=== PATIENT | male | born 1935 | race Caucasian/White ===

== ENCOUNTER 2025-02-26 09:01 | Inpatient (IN) | payer BC ==
[2025-02-20 10:17] LABS: BASOPHILS % (AUTO) 0.4 % (0-1); EOSINOPHILS % (AUTO) 0.2 % (0-6); LYMPHOCYTES # (AUTO) 0.9 X10'3 (1.1-4.8); LYMPHOCYTES % (AUTO) 19.9 % (21-51); MEAN CORPUSCULAR HEMOGLOBIN 32.2 PG (27.0-31.0); MEAN CORPUSCULAR VOLUME 97.4 FL (78-98); MEAN PLATELET VOLUME 8.9 FL (7.4-10.4); MONOCYTES # (AUTO) 0.3 X10'3 (0-0.9); MONOCYTES % (AUTO) 6.3 % (2-12); NEUTROPHILS # (AUTO) 3.4 X10'3 (1.8-7.7); NEUTROPHILS % (AUTO) 73.2 % (42-75); PRE OP HEMATOCRIT 45.1 % (42.0-52.0); PRE OP HEMOGLOBIN 14.9 g/dL (14.0-17.9); PRE OP PLATELET COUNT 181 X10'3 (140-440); PRE OP WHITE BLOOD COUNT 4.7 10'3 (4.8-10.8); RED BLOOD COUNT 4.63 X10'6 (4.70-6.10); RED CELL DISTRIBUTION WIDTH 14.2 % (11.5-14.5)
[2025-02-20 10:24] LABS: BILIRUBIN,URINE NEGATIVE (Neg); CLARITY,URINE CLEAR (Clear); COLOR,URINE YELLOW (Yellow); GLUCOSE, URINE NEGATIVE (Neg); KETONES,URINE 15 mg/dl (Neg); LEUKOCYTE ESTERASE ,URINE NEGATIVE (Neg); NITRITES, URINE NEGATIVE (Neg); OCCULT BLOOD,URINE MODERATE (Neg); PROTEIN,URINE NEGATIVE (Neg); UROBILINOGEN,URINE 0.2 E.U/dL (0.2-1.0)
[2025-02-20 10:27] LABS: PRE OP INR 1.1 INR; PRE OP PROTIME 11.1 SECONDS (9.0-12.0); UA COLLECTION TYPE NON-SPECIFIED
[2025-02-20 10:33] LABS: ALBUMIN 4.2 G/DL (3.4-5.0); ALBUMIN/GLOBULIN RATIO 1.3 (1.1-1.5); ALKALINE PHOSPHATASE 105 IU/L (46-116); BLOOD UREA NITROGEN 17 MG/DL (7-18); BUN/CREATININE RATIO 19.5 (10.0-20.0); CALCIUM 9.3 MG/DL (8.5-10.1); CHLORIDE 102 MMOL/L (99-107); CREATININE 0.87 MG/DL (0.60-1.10); PRE OP ALT 30 U/L (30-65); PRE OP ANION GAP 9 (8-16); PRE OP AST 26 U/L (10-37); PRE OP BILIRUB, TOTAL 1.8 MG/DL (0.0-1.0); PRE OP GLUCOSE 102 MG/DL (70-104); PRE OP POTASSIUM 3.9 MMOL/L (3.4-5.1); PRE OP SODIUM 137 MMOL/L (135-145); TOTAL CARBON DIOXIDE 25.7 MMOL/L (24-32); TOTAL PROTEIN 7.4 G/DL (6.4-8.2); eGFR 83 ML/MIN
[2025-02-20 10:34] LABS: BACTERIA,URINE NONE SEEN /HPF (Neg); MUCUS STRANDS NONE SEEN /LPF (Neg); RBC,URINE 20-50 /HPF (0-2); SQUAMOUS EPITHELIAL CELL,UR FEW /LPF (FEW); WBC,URINE 0-4 /HPF (0-4)
[2025-02-20 10:35] LABS: CAL OXALATE CRYSTALS FEW /HPF (NEGATIVE)
[2025-02-20 10:50] LABS: HEMOGLOBIN A1C 5.7 % (4.5-6.2)
[~2025-02-26] VITALS: Ht 154.9 cm; Wt 53.1 kg
[2025-02-26] VITALS (22 sets, daily range): BP systolic 59–153; BP diastolic 58–92; PULSE 51–81; RESP 10–18; TEMP 97–98.9; O2SAT 95–100
[2025-02-26] MEDS: ceFAZolin 2gm in dextrose, iso 50 ML IV ONE (05:30)
[~2025-02-26 09:01] MED LIST: ASCO500C12 PO; ASPI81TA52 PO; CLOP-32 PO; DILT120C94 PO; MULT-1249 PO; OLME5TAB32 PO; ondansetron/PF 4mg/2ml inj IV PRN; protamine sulfate 10mg/ml inj. ONE
[2025-02-26] MEDS ORDERED: morphine 2 MG/ML inj. syringe IV PRN (10:40)
[2025-02-26] MEDS ORDERED: hydrALAZINE 20mg/ml inj. IV PRN ×2 (10:40→12:15)
[2025-02-26] MEDS ORDERED: morphine 4 MG/ML inj SYRINge IV PRN (10:40)
[2025-02-26] MEDS ORDERED: labetalol 20mg/4ml (5mg/ml) syringe IV PRN ×2 (10:40→12:15)
[2025-02-26] MEDS ORDERED: ondansetron/PF 4mg/2ml inj IV PRN ×2 (10:40→12:15)
[2025-02-26] MEDS: famotidine 20mg tablet PO ONE (10:58)
[2025-02-26] MEDS: ringers solution, lacted 1,000 ML IV SCH ×2 (10:59→15:00)
[2025-02-26] MEDS: vancomycin/NS 1 GM ADD-VANTAGE 250 ML X 1 DOSE IV ONE (11:00)
[2025-02-26] MEDS ORDERED: iohexol 350MG/ML 100ml bottle IV ONE (11:27)
[2025-02-26] MEDS ORDERED: desflurane 240ml liquid inh. IH ONE (11:33)
[2025-02-26] MEDS ORDERED: fentaNYL/PF 50MCG/1 ML 2ML syringe ONE (11:36)
[2025-02-26] MEDS ORDERED: midazolam 1 mg/ML 2ml injection ONE (11:36)
[2025-02-26] MEDS ORDERED: LIDOcaine 1%/PF 5ML 10 MG/ML VIAL ONE (11:42)
[2025-02-26] MEDS ORDERED: rocuronium 10mg/ml inj IV ONE (11:42)
[2025-02-26] MEDS ORDERED: propofol inj 20 ML IV ONE (11:42)
[2025-02-26] MEDS ORDERED: dexamethasone sod phosphate 4mg/ml inj. ONE (11:42)
[2025-02-26] MEDS ORDERED: glycopyrrolate 0.2mg/ml inj ONE (11:43)
[2025-02-26] MEDS ORDERED: neostigmine methylsulfate 1 MG/ML 10ml vial ONE (11:43)
[2025-02-26] MEDS ORDERED: ondansetron/PF 4mg/2ml inj ONE (11:43)
[2025-02-26] MEDS ORDERED: heparin 1,000unit/ml 10ml vial 10 ML ONE (11:49)
[2025-02-26] MEDS ORDERED: magnesium sulf-water 4G/100mL 100 ML IV PRN (12:15)
[2025-02-26] MEDS ORDERED: magnesium sulf-water 2g/50mL 50 ML IV PRN (12:15)
[2025-02-26] MEDS ORDERED: pantoprazole 40mg Tablet.DR PO PRN (12:15)
[2025-02-26] MEDS ORDERED: proCHLORperazine 10 MG/2 ml inj IV PRN (12:15)
[2025-02-26] MEDS ORDERED: ALPRAZolam 0.25mg tablet PO PRN (12:15)
[2025-02-26] MEDS ORDERED: potassium Cl 40MEQ/1/2NS 520ml 520 ML IV PRN (12:15)
[2025-02-26] MEDS ORDERED: potassium Cl 40MEQ/270ML bag 250 ML IV PRN (12:15)
[2025-02-26] MEDS ORDERED: diphenhydrAMINE 25mg capsule PO PRN (12:15)
[2025-02-26] MEDS ORDERED: potassium Cl 20mEq/100mL bag 100 ML IV PRN (12:15)
[2025-02-26] MEDS ORDERED: HYDROcodone/acetaminophen 5mg/325mg tablet PO PRN (12:15)
[2025-02-26] MEDS ORDERED: acetaminophen 325mg tablet PO PRN (12:15)
[2025-02-26] MEDS ORDERED: potassium Cl 20 mEq SR tablet PO PRN (12:15)
[2025-02-26] MEDS ORDERED: docusate sod 100mg capsule PO PRN (12:15)
[2025-02-26] MEDS ORDERED: potassium CL 10mEq/100ml bag 100 ML IV PRN (12:15)
[2025-02-26] MEDS: sod chloride 0.9% 10ml flush syringe IV SCH (16:00)
[2025-02-26] MEDS: ceFAZolin/D5W- 1GM premix 50 ML IV SCH (17:53)
[2025-02-26] MEDS: normal saline 1000ml 1,000 ML IV SCH (17:54)
[2025-02-26] MEDS: multivitamins, therapeutics tablet PO SCH (19:37)
[2025-02-26] MEDS: ascorbic acid 500mg tablet PO SCH (19:38)
[2025-02-26] MEDS: aspirin 81mg, enteric-coated 1 TAB TABLET.DR PO SCH (19:39)
[2025-02-26] MEDS: clopidogrel 75mg tablet PO SCH (19:39)
[2025-02-26] MEDS: losartan 50mg tablet PO SCH (19:42)
[2025-02-26] MEDS: vancomycin/NS 1 GM ADD-VANTAGE 250 ML IV SCH (19:45)
[2025-02-27 02:00] VITALS: BP_SYST 0; BP_SYST 133; BP_DIAS 77; PULSE 73; RESP 12; TEMP 97.3; O2SAT 97
[2025-02-27 06:00] VITALS: BP_SYST 0; BP_SYST 152; BP_DIAS 78; PULSE 76; RESP 15; TEMP 97.5; O2SAT 98
[2025-02-27 07:10] LABS: BASOPHILS % (AUTO) 0.1 % (0-1); EOSINOPHILS % (AUTO) 0 % (0-6); HEMATOCRIT 40.3 % (42.0-52.0); HEMOGLOBIN 14.1 g/dl (14.0-17.9); LYMPHOCYTES # (AUTO) 0.5 X10'3 (1.1-4.8); LYMPHOCYTES % (AUTO) 8.1 % (21-51); MEAN CORPUSCULAR HEMOGLOBIN 33.1 PG (27.0-31.0); MEAN CORPUSCULAR VOLUME 94.5 FL (78-98); MEAN PLATELET VOLUME 8.7 FL (7.4-10.4); MONOCYTES # (AUTO) 0.4 X10'3 (0-0.9); MONOCYTES % (AUTO) 6.3 % (2-12); NEUTROPHILS # (AUTO) 4.9 X10'3 (1.8-7.7); NEUTROPHILS % (AUTO) 85.5 % (42-75); PLATELET COUNT 163 X10'3 (140-440); RED BLOOD COUNT 4.26 X10'6 (4.70-6.10); RED CELL DISTRIBUTION WIDTH 13.8 % (11.5-14.5); WHITE BLOOD COUNT 5.8 X10'3 (4.5-11.0)
[2025-02-27 07:16] LABS: INR 1.1 INR; PROTHROMBIN TIME 11.3 SECONDS (9.0-12.0)
[2025-02-27 07:30] LABS: ALANINE AMINOTRANSFERASE 19 U/L (12-78); ALBUMIN 3.6 G/DL (3.4-5.0); ALBUMIN/GLOBULIN RATIO 1.1 (1.1-1.5); ALKALINE PHOSPHATASE 91 IU/L (46-116); ANION GAP 9 (8-16); ASPARTATE AMINO TRANSFERASE 26 U/L (10-37); BILIRUBIN,TOTAL 1.9 MG/DL (0.1-1.0); BLOOD UREA NITROGEN 15 MG/DL (7-18); CALCIUM 9.1 MG/DL (8.5-10.1); CHLORIDE 103 MMOL/L (99-107); GLUCOSE 158 MG/DL (70-104); MAGNESIUM 1.8 MG/DL (1.5-2.4); POTASSIUM 4.3 MMOL/L (3.5-5.1); PRO BRAIN NATRIURETIC PEPTIDE 2568 PG/ML (0-450); SODIUM 138 MMOL/L (135-145); TOTAL CARBON DIOXIDE 26.1 MMOL/L (24-32); TOTAL PROTEIN 6.8 G/DL (6.4-8.2); eCRCL 38 ML/MIN; eGFR 71 ML/MIN
[2025-02-27] MEDS: diltiazem CD 120mg capsule (once-daily) PO SCH (07:39)
[2025-02-27 08:00] VITALS: RESP 15; O2SAT 98
[2025-02-27 11:00] VITALS: BP_SYST 0; BP_SYST 148; BP_DIAS 78; PULSE 70; RESP 16; TEMP 97.7; O2SAT 97
== END 2025-02-27 15:47 | disposition home or self-care (01) | DRG 274 ==
LOC: PAS IN 09:01 → EDSTATUS 11:30 → PCU 3S 15:14
PROVIDERS: ADMIT Student in an Organized Health Care Education/Training Program; ATTEND Student in an Organized Health Care Education/Training Program
PROC: B24BZZ4 Ultrasonography of Heart with Aorta, Transesophageal (ICD-10-PCS; 2025-02-26)
PROC: 02L73DK Occlusion of Left Atrial Appendage with Intraluminal Device, Percutaneous Approach (ICD-10-PCS; principal; 2025-02-26 11:33)
DX: I48.91 Unspecified atrial fibrillation (principal); Z00.6 Encounter for examination for normal comparison and control in clinical research program
CPT/HCPCS: 33340; 36415; 71045; 71046; 76937; 80053; 81001; 82948; 83036; 83735; 83880; 85025; 85347; 85610; 85730; 86885; 86900; 86901; 86920; 87081; 93005; 93308; 93312; 93325; A4618; A6258; A6402; A6449; C1758; C1760; C1889; C1893; C1894; G0378; J0690; J1100; J1644; J2250; J2405; J2704; J2710; J2720; J3010; J3370; J3490; J7030; J7120; Q9967

== ENCOUNTER 2025-04-14 11:20 | Day surgery (SDC) | payer BC ==
[2025-04-14] VITALS (13 sets, daily range): BP systolic 121–162; BP diastolic 58–87; PULSE 66–79; RESP 13–22; TEMP 98.2; O2SAT 97–100
[~2025-04-14] VITALS: Ht 154.9 cm; Wt 54.6 kg
[~2025-04-14 11:20] MED LIST changes: -ondansetron/PF 4mg/2ml inj IV PRN; -protamine sulfate 10mg/ml inj. ONE
[2025-04-14 14:00] LABS: BASOPHILS % (AUTO) 0.9 % (0-1); EOSINOPHILS % (AUTO) 0.9 % (0-6); HEMATOCRIT 33.8 % (42.0-52.0); HEMOGLOBIN 11.4 g/dl (14.0-17.9); LYMPHOCYTES # (AUTO) 1.1 X10'3 (1.1-4.8); LYMPHOCYTES % (AUTO) 23.2 % (21-51); MEAN CORPUSCULAR HEMOGLOBIN 31.2 PG (27.0-31.0); MEAN CORPUSCULAR HGB CONC 33.7 g/dL (33.0-36.5); MEAN CORPUSCULAR VOLUME 92.5 FL (78-98); MEAN PLATELET VOLUME 7.7 FL (7.4-10.4); MONOCYTES # (AUTO) 0.5 X10'3 (0-0.9); MONOCYTES % (AUTO) 9.9 % (2-12); NEUTROPHILS # (AUTO) 3.2 X10'3 (1.8-7.7); NEUTROPHILS % (AUTO) 65.1 % (42-75); PLATELET COUNT 356 X10'3 (140-440); RED BLOOD COUNT 3.66 X10'6 (4.70-6.10); RED CELL DISTRIBUTION WIDTH 13.6 % (11.5-14.5); WHITE BLOOD COUNT 4.9 X10'3 (4.5-11.0)
[2025-04-14 14:14] LABS: ALBUMIN 2.9 G/DL (3.4-5.0); ANION GAP 12 (8-16); BLOOD UREA NITROGEN 12 MG/DL (7-18); BUN/CREATININE RATIO 13.6 (10.0-20.0); CHLORIDE 99 MMOL/L (99-107); CREATININE 0.88 MG/DL (0.60-1.10); GLUCOSE 103 MG/DL (70-104); SODIUM 135 MMOL/L (135-145); TOTAL CARBON DIOXIDE 24.4 MMOL/L (24-32); eCRCL 43 ML/MIN; eGFR 82 ML/MIN
[2025-04-14 14:16] LABS: APTT 27 SECONDS (22-32); INR 1.2 INR; PROTHROMBIN TIME 11.9 SECONDS (9.0-12.0)
[2025-04-14] MEDS: fentaNYL/PF 50MCG/1 ML 2ML syringe IV ONE (14:35)
[2025-04-14] MEDS: MIDAZolam 1mg/ml 10ml vial IV ONE (14:35)
--- NOTE | 2025-04-14 18:05 | CARDIOLOGY REPORT ---
APPROVED REPORT EXAM: Focused, limited transesophageal echocardiogram with color flow Doppler. Patient Location: OUT-PATIENT Blood Pressure: 150/80 mmHg Heart Rate: 75 bpm Rhythm: ATRIAL FIBRILLATION Indications POST WATCHMAN FLX SHI CLOSURE DEVICE IMPLANTATION FOLLOW UP EVALUATE DEVICE FOR THROMBUS, POSITION, AND SEAL 31mm WATCHMAN FLX SHI CLOSURE DEVICE 02/26/25 [facility] PASSED BY: Harris EASON MD Van Loader: Tomas Eason MD Previous echo: 02/27/25 [facility] HD EF: 75-80%; nlLV; mCLVH; sevLAE; smLtoR; Jhonny; mMR; modTR noPE LEFT VENTRICLE Normal LV size and function. Mild concentric hypertrophy. LVEF is 75-80%. ATRIA LA is severely dilated. Intact interatrial septum without detectable L to R shunt s/p transseptal pun cture. Left upper pulmonary vein identified. Successfully occluded left atrial appendage with well vi sualized Watchman device well positioned without thrombus. No residual flow detected around device in all views. Right atrium is markedly dilated. TRICUSPID VALVE TV appears structurally normal with moderate regurgitation. CONCLUSION Normal LV size and function. Mild concentric hypertrophy. LVEF is 75-80%. LA is severely dilated. Int act interatrial septum without detectable L to R shunt s/p transseptal puncture. Left upper pulmonary vein identified. Successfully occluded left atrial appendage with well visualized Watchman device we ll positioned without thrombus. No residual flow detected around device in all views. Right atrium is markedly dilated. TV appears structurally normal with moderate regurgitation. Conclusion Normal LV size and function. Mild concentric hypertrophy. LVEF is 75-80%. LA is severely dilated. Intact interatrial septum without detectable L to R shunt s/p transseptal pu ncture. Left upper pulmonary vein identified. Successfully occluded left atrial appendage with well visualized Watchman device well positioned without thrombus. No residual flow detected around devic e in all views. Right atrium is markedly dilated. TV appears structurally normal with moderate regurgitation.
== END 2025-04-14 14:45 | disposition home or self-care (01) ==
LOC: SSTAY O 11:20
PROVIDERS: ATTEND Student in an Organized Health Care Education/Training Program
DX: I48.91 Unspecified atrial fibrillation (principal); E11.9 Type 2 diabetes mellitus without complications; I10 Essential (primary) hypertension; K21.9 Gastro-esophageal reflux disease without esophagitis; Z86.73 Personal history of transient ischemic attack (TIA), and cerebral infarction without residual deficits; Z79.899 Other long term (current) drug therapy
CPT/HCPCS: 36415; 80048; 85025; 85610; 85730; 93312; 93325; 94760; J2250; J3010; J7030